=== PATIENT | female | born 2000 | race Caucasian/White ===

== ENCOUNTER 2022-05-29 13:47 | Inpatient (IN) ==
[2022-05-29 14:32] LABS: Basophils % 0.3 %; Eosinophils % 0.4 %; Hematocrit 32.8 % (35.3-44.9); Hemoglobin 10.2 g/dL (11.5-15.4); Lymphocytes # 1.5 K/mcL (0.6-4.6); Lymphocytes % 16.5 %; Mean Corpuscular HGB Conc 31.1 g/dL (31.6-35.5); Mean Corpuscular Hemoglobin 24.5 pg (28.0-33.3); Mean Corpuscular Volume 78.7 fL (83.0-100.0); Mean Platelet Volume 11.1 fL (9.4-12.4); Monocytes # 0.7 K/mcL (0.0-1.3); Monocytes % 7.5 %; Neutrophils # 6.9 K/mcL (1.6-8.9); Platelet Count 238 K/mcL (140-400); Red Blood Count 4.17 M/mcL (3.82-4.97); Segmented Neutrophils % 74.3 %; White Blood Count 9.3 K/mcL (4.3-11.1)
[2022-05-29 14:38] LABS: Creatinine,Urine 174 mg/dL; Protein/Creatinine Ratio,Urine 0.49 mg/mg (0.00-0.20)
[2022-05-29 14:50] LABS: Alanine Aminotransferase 7 Units/L (7-52); Aspartate Amino Transferase 12 Units/L (13-39); BUN/Creatinine Ratio 20 (6-26); Blood Urea Nitrogen 10 mg/dL (6-20); Lactate Dehydrogenase 137 Units/L (140-271); Uric Acid 5.5 mg/dL (2.3-7.6)
[2022-05-29] MEDS ORDERED: Famotidine 20 MG/2 ML VIAL IVP PRN (15:46)
[2022-05-29] MEDS ORDERED: Naloxone 0.4 MG/ML INJ IVP PRN (15:46)
[2022-05-29] MEDS ORDERED: *HR* Nalbuphine 10 MG/ML AMPUL IV PRN (15:46)
[2022-05-29] MEDS ORDERED: Metoclopramide 10 MG/2 ML VIAL IVP PRN (15:46)
[2022-05-29] MEDS ORDERED: miSOPROStoL 25 MCG TABLET PO PRN (15:48)
[2022-05-29 15:59] LABS: Bacteria,Urine Moderate per hpf (None-Few); Bilirubin,Urine Negative (Negative); Blood,Urine Negative (Negative); Clarity,Urine Turbid (Clear); Color,Urine Yellow (Yellow); Glucose,Urine (UA) Normal (Normal); Ketones,Urine Negative (Negative); Leukocyte Esterase,Urine Negative (Negative); Mucus,Urine Many per lpf (None-Few); Nitrite,Urine Negative (Negative); Protein,Urine 70 mg/dL (Neg-Trace); RBC,Urine 0-3 per hpf (0-3); Specific Gravity,Urine 1.025 (1.010-1.025); Squamous Epithelial Cell,Urine Moderate per hpf (None-Few); Urobilinogen,Urine Normal (Normal)
[2022-05-29 16:10] LABS: Amphetamine Screen,Urine Negative ng/mL (Cutoff=1000); Barbiturate Screen,Urine Negative ng/mL (Cutoff=200); Benzodiazepines Screen,Urine Negative ng/mL (Cutoff=200); Cannabinoid Screen,Urine Negative ng/mL (Cutoff = 50); Cocaine Screen,Urine Negative ng/mL (Cutoff= 300); Opiate Screen,Urine Negative ng/mL (Cutoff=300); Phencyclidine Screen,Urine Negative ng/mL (Cutoff=25)
[2022-05-29] MEDS ORDERED: Ringers Solution, Lactated 1,000 ML ONE (16:59)
[2022-05-29] MEDS ORDERED: EPHEDrine sulfate 50 MG/10 ML VIAL IVP PRN (19:39)
[2022-05-29] MEDS ORDERED: Epidural Premix (fent/bupiv) 110 ML EP SCH (19:45)
[2022-05-29] MEDS ORDERED: Acetaminophen 325 MG TABLET PO PRN (20:43)
[2022-05-30] MEDS: Ondansetron 4 MG/2 ML VIAL IVP PRN ×2 (03:48→09:46)
[2022-05-30] MEDS ORDERED: Ringers Solution, Lactated 1,000 ML ONE (11:59)
[2022-05-30] MEDS ORDERED: Ringer's Solution, Lactated 250 ML IV.SOLN IVC PRN (12:08)
[2022-05-30] MEDS ORDERED: Ropivacaine/PF 0.2% 20 ML VIAL EP ONE (12:55)
[2022-05-30] MEDS ORDERED: *HR* FentaNYL (PF) 100 MCG/2 ML VIAL EP ONE (12:55)
[2022-05-30] MEDS ORDERED: *HR* FentaNYL (PF) 100 MCG/2 ML VIAL ONE (13:15)
[2022-05-30] MEDS ORDERED: Ropivacaine/PF 0.2% 20 ML VIAL ONE (13:15)
[2022-05-30] MEDS ORDERED: Oxytocin 30 UNIT/503 ML BAG IVC ONE (14:31)
[2022-05-30] MEDS: Ringers Solution, Lactated 1,000 ML IVC SCH ×2 (15:05→16:41)
[2022-05-30] MEDS ORDERED: Oxytocin 30 UNIT/503 ML BAG IVC SCH (18:15)
[2022-05-30] MEDS ORDERED: Ibuprofen 600 MG TABLET PO ONE (21:41)
[2022-05-31] MEDS ORDERED: Lanolin 7 G OINT...G. TP PRN (01:06)
[2022-05-31] MEDS ORDERED: Benzocaine/Menthol 56 GM AEROSOL SPRAY TP PRN (01:06)
[2022-05-31] MEDS ORDERED: Ondansetron ODT 4 MG TAB.RAPDIS SL PRN (01:06)
[2022-05-31] MEDS ORDERED: Oxytocin 30 UNIT/503 ML BAG IVC SCH (01:06)
[2022-05-31] MEDS: Acetaminophen 325 MG TABLET PO SCH ×4 (02:09→17:36)
[2022-05-31] MEDS: Ibuprofen 600 MG TABLET PO SCH ×4 (02:09→17:36)
[2022-05-31] MEDS: Prenatal Vit/FA 1 EACH TABLET PO SCH (08:00)
[2022-06-01] MEDS: Ibuprofen 600 MG TABLET PO SCH ×2 (01:28→07:55)
[2022-06-01] MEDS: Acetaminophen 325 MG TABLET PO SCH ×2 (01:29→07:55)
[2022-06-01] MEDS: Prenatal Vit/FA 1 EACH TABLET PO SCH (07:54)
[2022-06-01 08:20] VITALS: BP 129/91; PULSE 84; TEMP 98.1; O2SAT 98
== END 2022-06-01 12:25 | disposition home or self-care (01) | DRG 807 ==
LOC: INTOOBSV 13:47 → 1NENULAB 13:47 → 1NENUOBS 05-31 00:11
PROVIDERS: ADMIT Obstetrics & Gynecology; ATTEND Obstetrics & Gynecology